=== PATIENT | male | born 1965 | race Caucasian/White ===

== ENCOUNTER 2023-02-03 14:00 | Emergency (ER) | payer OTHER ==
[~2023-02-03] VITALS: Ht 188 cm; Wt 84.4 kg
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
[2023-02-03 14:39] VITALS: BP 141/72
== END 2023-02-03 14:39 ==
LOC: ER FS 14:01
DX: S01.511A Laceration without foreign body of lip, initial encounter (principal); S01.512A Laceration without foreign body of oral cavity, initial encounter; F10.10 Alcohol abuse, uncomplicated; F17.200 Nicotine dependence, unspecified, uncomplicated; Z28.310 Unvaccinated for COVID-19; V89.2XXA Person injured in unspecified motor-vehicle accident, traffic, initial encounter; Y92.410 Unspecified street and highway as the place of occurrence of the external cause
CPT/HCPCS: 99281